=== PATIENT | male | born 1965 | race Two or more races ===

== ENCOUNTER 2021-07-11 09:21 | Emergency (ER) | payer OTHER ==
[2021-07-11 09:48] LABS: BASOPHIL 0.5 % (0-2); EOSINOPHIL 1.6 % (0-5); HCT 45.6 % (42.0-52.0); HGB 15.6 g/dl (13.2-18.0); LYMPHOCYTE 49.5 % (15-48); MCH 29.2 pg (25.0-31.0); MCHC 34.2 g/dL (32.0-36.0); MCV 85.2 fL (78.0-100.0); MONOCYTE 8.7 % (0-12); MPV 10.3 fL (6.0-9.5); NEUTROPHIL 39.4 % (41-80); NRBC 0; PLT 274 K/uL (150-400); RBC 5.35 M/uL (4.70-6.00); RDW 12.8 % (11.5-14.0); WBC 8.8 K/uL (4.0-10.5)
[2021-07-11 09:56] LABS: INR 0.93 (0.9-1.2); PROTHROMBIN TIME 11.9 SECONDS (11.8-13.4); PTT 26.1 SECONDS (24.4-34.7)
[2021-07-11 10:17] LABS: LIPASE 102 U/L (73-393)
[2021-07-11 10:24] LABS: ALBUMIN 4.2 g/dL (3.4-5.0); BILIRUBIN - TOTAL 0.5 mg/dL (0.2-1.0); BUN/CREAT RATIO (CALC) 18.4 RATIO; CREATININE 0.87 mg/dL (0.67-1.17); POTASSIUM 3.5 mmol/L (3.5-5.1); TOTAL PROTEIN 8.2 g/dL (6.4-8.2)
[2021-07-11 13:16] LABS: BILIRUBIN NEGATIVE (NEGATIVE); BLOOD NEGATIVE Ery/uL (NEGATIVE); CLARITY CLEAR (CLEAR); COLOR YELLOW (YELLOW); GLUCOSE (U) NORMAL (NORMAL); LEUKOCYTES NEGATIVE Leu/uL (NEGATIVE); NITRITE NEGATIVE (NEGATIVE); PROTEIN NEGATIVE (NEGATIVE); UROBILINOGEN 0.2 mg/dL (0.2-1.0)
== END 2021-07-11 14:45 | disposition other institution (70) ==
LOC: FER 09:21
PROVIDERS: Emergency Medicine
DX: R07.9 Chest pain, unspecified (principal); Z20.822 Contact with and (suspected) exposure to COVID-19
CPT/HCPCS: 36415; 71045; 80053; 81003; 83690; 84484; 85025; 85379; 85610; 85730; 93005; G0480; J1644; J2270; J2405; U0002